=== PATIENT | male | born 1980 | race Caucasian/White ===

== ENCOUNTER 2017-09-05 09:06 | Emergency (ER) | payer OTHER ==
[2017-09-05 09:32] VITALS: RESP 18
--- NOTE | 2017-09-05 10:37 | ED ---
Lower Extremity Injury HPI - General Chief Complaint: Extremity Injury, Lower Stated Complaint: Ankle pain Time Seen by Provider: 09/05/17 10:11 Source: patient Mode of arrival: wheelchair Limitations: no limitations - History of Present Illness Initial Comments: This 37-year-old white male presents with a complaint of some left ankle pain. He states that he was playing basketball yesterday when he rolled/twisted his left ankle. He has had pain with ambulation since. He complains of some swelling on the lateral aspect. He states that he has sprained this ankle in the past but denies any previous fractures. He denies any other injuries. No other complaints or modifying factors. - Related Data Home Medications Medication Instructions Recorded Confirmed Acetaminophen Tab [Tylenol Tab] 1,000 mg PO Q6HR PRN 09/05/17 09/05/17 Previous Rx's Medication Instructions Recorded Ibuprofen [Motrin] 800 mg PO Q8H PRN #20 tab 09/05/17 Allergies Allergy/AdvReac Type Severity Reaction Status Date / Time No Known Allergies Allergy Verified 09/05/17 10:01 Review of Systems ROS Statement: Those systems with pertinent positive or pertinent negative responses have been documented in the HPI. ROS Other: All systems not noted in ROS Statement are negative. Past Medical History Past Medical History: No Reported History History of Any Multi-Drug Resistant Organisms: None Reported Past Surgical History: No Surgical Hx Reported Past Psychological History: No Psychological Hx Reported Smoking Status: Former smoker Past Alcohol Use History: Rare Past Drug Use History: Marijuana General Exam Limitations: no limitations General appearance: alert, in no apparent distress Extremities exam: Present: tenderness (There is tenderness present to the left ankle both laterally and medially. There is some mild swelling noted to the lateral aspect of the left ankle. There is some pain with any range of motion to the left ankle. There is no tenderness to the left proximal tibia/fibula. There is no foot tenderness or swelling.) Neurological exam: Present: alert, oriented X3 Skin exam: Present: intact. Absent: rash Course Vital Signs 09/05/17 09:31 Temperature 98.0 F Pulse Rate 77 Respiratory 18 Rate Blood Pressure 128/80 O2 Sat by Pulse 98 Oximetry Medical Decision Making - Medical Decision Making The patient was seen and examined. All diagnostics were reviewed. The patient had an x-ray of the left ankle which did not show any evidence of fracture. It is felt as though he likely does have a left ankle sprain. He is placed in a custom molded 4 inch Ortho-Glass splint by myself. Excellent post-splint neurovascular status is noted. He is counseled regarding ankle sprains in detail. He leaves in no apparent distress. Disposition Clinical Impression: Ankle sprain and strain Disposition: HOME SELF-CARE Condition: Good Instructions: Ankle Sprain (ED), Splint Care (ED), Crutch Instructions (ED) Prescriptions: Ibuprofen [Motrin] 800 mg PO Q8H PRN #20 tab PRN Reason: Pain Referrals: Lucio Anderson MD [Primary Care Provider] - 09/08/17 Time of Disposition: 11:20
--- NOTE | 2017-09-05 11:14 | XR ---
EXAMINATION TYPE: XR ankle complete LT DATE OF EXAM: 09/05/2017 COMPARISON: NONE HISTORY: 37-year-old male left ankle pain and swelling after basketball injury TECHNIQUE: 3 views FINDINGS: There is some bony spurring along the medial aspect of the medial malleolus. Ankle mortise is congrue nt with preservation of the distal tibiofibular overlap. Talar dome is intact. There is some circumfe rential soft tissue swelling noted. Subtalar joint is aligned. No acute fracture or dislocation. IMPRESSION: 1. Circumferential soft tissue swelling without acute osseous abnormality seen. 2. Some chronic bony changes at the medial malleolus can be seen in the setting of posterior tibial t endon dysfunction.
[2017-09-05 11:58] VITALS: BP 144/92; PULSE 69; TEMP 97.7
== END 2017-09-05 11:50 | disposition home or self-care (01) ==
LOC: EC 09:06
DX: S93.402A Sprain of unspecified ligament of left ankle, initial encounter (principal); S96.912A Strain of unspecified muscle and tendon at ankle and foot level, left foot, initial encounter; Z87.891 Personal history of nicotine dependence; X50.1XXA Overexertion from prolonged static or awkward postures, initial encounter; Y93.67 Activity, basketball
CPT/HCPCS: 29515; 99283

== ENCOUNTER 2018-10-02 13:44 | Emergency (ER) | payer OTHER ==
--- NOTE | 2018-10-02 14:03 | ED ---
General Adult HPI - General Chief complaint: Extremity Injury, Lower Stated complaint: knee pain Time Seen by Provider: 10/02/18 13:56 Source: patient, RN notes reviewed, old records reviewed Mode of arrival: ambulatory Limitations: no limitations - History of Present Illness Initial comments: 38-year-old male patient past medical history of hypertension presents to ED with right knee injury. Patient states that yesterday while playing basketball when he came down from a jump he felt pain on the anterior of his knee. Patient states that he feels that the "inside of his knee is tight". Patient is able to bear weight. Patient was not able to return to play. Patient not had any previous surgeries on her knee. Patient denies any other complaints. Systemic: Pt denies fatigue, myalgia, fever/chills, rash. Pt denies weakness, night sweats, weight loss. Neuro: Pt denies headache, visual disturbances, syncope or pre-syncope. HEENT: Pt denies ocular discharge or irritation, otalgia, rhinorrhea, pharyngitis or notable lymphadenopathy. Cardiopulmonary: Pt denies chest pain, SOB, heart palpitations, dyspnea on exertion. Abdominal/GI: Pt denies abdominal pain, n/v/d. : Pt denies dysuria, burning w/ urination, frequency/urgency. Denies new onset urinary or bowel incontinence. MSK: Pt denies myalgia, loss of strength or function in extremities. Neuro: Pt denies new onset weakness, paresthesias. - Related Data Home Medications Medication Instructions Recorded Confirmed Acetaminophen Tab [Tylenol Tab] 1,000 mg PO Q6HR PRN 09/05/17 09/05/17 Previous Rx's Medication Instructions Recorded Ibuprofen [Motrin] 800 mg PO Q8H PRN #20 tab 09/05/17 Allergies Allergy/AdvReac Type Severity Reaction Status Date / Time No Known Allergies Allergy Verified 10/02/18 13:48 Review of Systems ROS Statement: Those systems with pertinent positive or pertinent negative responses have been documented in the HPI. ROS Other: All systems not noted in ROS Statement are negative. Past Medical History Past Medical History: Hypertension History of Any Multi-Drug Resistant Organisms: None Reported Past Surgical History: No Surgical Hx Reported Past Psychological History: No Psychological Hx Reported Smoking Status: Former smoker Past Alcohol Use History: Rare Past Drug Use History: Marijuana General Exam - General Exam Comments Initial Comments: Constitutional: NAD, AOX3, Pt has pleasant affect. HEENT: NC/AT, trachea midline, neck supple, no lymphadenopathy. Posterior pharynx non erythematous, without exudates. External ears appear normal, without discharge. Mucous membranes moist. Eyes PERRLA, EOM intact. There is no scleral icterus. No pallor noted. Cardiopulmonary: RRR, no murmurs, rubs or gallops, no JVD noted. Lungs CTAB in anterior and posterior guallpa. No peripheral edema. Abdominal exam: Abdomen soft and non-distended. Abdomen non-tender to palpation in all 4 quadrants. Bowel sounds active in LLQ. No hepatosplenomegaly. No ecchymosis Neuro: CN II-XII grossly intact. No nuchal rigidity. MSK: Full active range of motion of the knee. No tenderness to palpation knee. No ecchymoses, no edema. No posterior calf tenderness bilaterally, homans sign negative bilaterally. Posterior tibialis and radial pulse +2 bilaterally. Sensation intact in upper and lower extremities. Full active ROM in upper and lower extremities, 5/5 stregnth. Limitations: no limitations Course Vital Signs 10/02/18 13:46 Temperature 97.9 F Pulse Rate 67 Respiratory 20 Rate Blood Pressure 160/104 O2 Sat by Pulse 99 Oximetry Medical Decision Making - Medical Decision Making 38-year-old male patient past medical history of hypertension presents to ED with right knee injury. Patient states that yesterday while playing basketball when he came down from a jump he felt pain on the anterior of his knee. Patient states that he feels that the "inside of his knee is tight". Patient is able to bear weight. Patient was not able to return to play. Patient not had any previous surgeries on her knee. Patient denies any other complaints. Patient vital signs stable, afebrile. Physical exam displayed: Full active range of motion of the knee. No tenderness to palpation knee. No ecchymoses, no edema. No posterior calf tenderness bilaterally, homans sign negative bilaterally. Posterior tibialis and radial pulse +2 bilaterally. Plain film of knee displayed no acute fracture dislocation. Small amount of fluid in the suprapatellar bursa. There is an intraosseous bone lesion of the proximal fibula, MRI recommended for further assessment. Provided bone density anterior to be likely related to previous amount as gets a lot of disease. Patient discharged with orthopedic follow-up. Patient return to ER if condition worsens in any way. Patient offered knee immobilizer, declined. Case discussed with Dr. Johnson. Disposition Clinical Impression: Knee sprain Disposition: HOME SELF-CARE Condition: Stable Instructions (If sedation given, give patient instructions): Knee Sprain (ED) Additional Instructions: Patient to adhere to previously discussed treatment plan and will take medication(s) as directed. Patient to follow up with PCP in 1-2 days. Patient to return to ED if symptoms do not improve. Follow up with primary care provider and orthopedic consult in 1-2 days. Return to ER if conditions worsen anyway. Is patient prescribed a controlled substance at d/c from ED?: No Referrals: Lucio Anderson MD [Primary Care Provider] - 1-2 days Curtis Ortiz MD [STAFF PHYSICIAN] - 1-2 days
--- NOTE | 2018-10-02 14:39 | XR ---
EXAMINATION TYPE: XR knee 4V RT DATE OF EXAM: 10/02/2018 COMPARISON: NONE HISTORY: Pain TECHNIQUE: Four views are submitted. FINDINGS: Joint spaces are preserved. Osseous structures are intact. No acute fracture seen. There is a intr aosseous lucent lesion involving the epiphysis of the proximal fibula measuring 4.1 cm. Aneurysmal jose ne cyst, bone cyst or fibrous dysplasia in the differential diagnosis. Other etiologies not excluded. MRI recommended. Bony density anterior to the tibia may be related to previous [place]-Schlatter dise ase or patellar tendon injury. IMPRESSION: 1. No acute fracture or dislocation. Small amount of fluid in the suprapatellar bursa. 2. There is an intraosseous bone lesion of the proximal fibula. MRI recommended for further assessmen t. 3. Rounded bony density anterior to the tibia likely related to previous remote [place]-Schlatter dise ase.
[2018-10-02 15:07] VITALS: BP 145/87; PULSE 62; RESP 18; TEMP 98
== END 2018-10-02 15:05 | disposition home or self-care (01) ==
LOC: EC 13:44
DX: S83.91XA Sprain of unspecified site of right knee, initial encounter (principal); Z87.891 Personal history of nicotine dependence; X58.XXXA Exposure to other specified factors, initial encounter; Y93.67 Activity, basketball
CPT/HCPCS: 99284

== ENCOUNTER → 2019-12-05 | Outpatient (CLI) | payer OTHER ==
--- NOTE | 2019-12-05 19:41 | CONS ---
CONSULTATION DATE OF SERVICE: 12/05/2019 This patient is a 39-year-old gentleman who has been evaluated in the sleep center for possible obstructive sleep apnea-hypopnea syndrome. 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 until 3 p.m. On weekends he sleeps from around 11 p.m. to 8 a.m. Usually no problems with falling asleep. No TV in bedroom. He usually sleeps on the side position. He snores and wakes up from sleep around 5 times with nocturia. During the time when he is not sleeping, he sometimes has sleepiness, although [place] Sleepiness Scale is 4, which is within normal range. The patient has a positive history of episodes of chest pain during the night also. No history of hypnagogic hallucinations, sleep paralysis or cataplexy. He does have a history of restless leg syndrome. PAST MEDICAL HISTORY: Positive for hypertension. According to the patient, he had a recent evaluation by a analytical manager, including an echocardiogram that was in normal range. He has history of asthma, acid reflux. PAST SURGICAL HISTORY: Right knee surgery. MEDICATIONS: Lisinopril, metoprolol. FAMILY HISTORY: Hypertension, heart problems, cancer, thyroid problems. SOCIAL HISTORY: Marijuana user for about 25 years, 2 times a day. REVIEW OF SYSTEMS: Multiple awakenings from sleep. PHYSICAL EXAMINATION: GENERAL: A pleasant 39-year-old gentleman without distress. VITAL SIGNS: BP 120/80, HR 80, RR 16, height 6 feet 1/2 inch, weight 274, body mass index 36.6, temperature 98.1, oxygen saturation at room air 97%. HEENT: PERRLA, EOMI. Evaluation of oropharynx showed tongue protrudes midline. Low position of soft palate. Mallampati III-IV. NECK: Supple. No JVD. Thyroid is not palpable. Wide neck measuring 17-1/2 inches in circumference. LUNGS: Clear to percussion and to auscultation. Good air exchange. No wheezing or rhonchi. HEART: S1, S2 regular. No murmurs, gallops or rubs. ABDOMEN: Soft. No tenderness. EXTREMITIES: No clubbing or cyanosis. 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 Cranial nerves 2 to 7 intact. There is no fasciculation or atrophy. noted. No focal deficits observed. IMPRESSION: 1. Snoring, multiple awakenings from sleep, low position of soft palate, wide neck; obstructive sleep apnea. 2. Obesity, body mass index 36.6. 3. Hypertension. 4. History of asthma. 5. Acid reflux. 6. Restless leg symptoms. 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 8. Status post right knee surgery. 9. Marijuana user for 25 years. PLAN: 1. Polysomnography for evaluation of patient's breathing during sleep. 2. CPAP/BiPAP titration if sleep study confirms obstructive sleep apnea-hypopnea syndrome. 3. Preferable position during sleep on the side. 4. No driving if patient feels any sleepiness. 5. I will see patient for follow up visit to explain results of testing and following plan. Thank you very much for referring this patient for consultation. Sincerely, Dre Oconnor MD, PhD, FAASM Diplomat of [place] [employer] [place] [employer] [facility] [place] MMODL / JUVENTINON: [id number] /
== END | disposition home or self-care (01) ==
LOC: SLEEP 16:43
PROVIDERS: ATTEND Internal Medicine
DX: G47.33 Obstructive sleep apnea (adult) (pediatric) (principal); E66.9 Obesity, unspecified; Z68.36 Body mass index [BMI] 36.0-36.9, adult; I10 Essential (primary) hypertension; G25.81 Restless legs syndrome; F12.90 Cannabis use, unspecified, uncomplicated; K21.9 Gastro-esophageal reflux disease without esophagitis; Z87.09 Personal history of other diseases of the respiratory system; Z96.651 Presence of right artificial knee joint; Z79.899 Other long term (current) drug therapy
CPT/HCPCS: 99211

== ENCOUNTER 2020-01-19 15:35 | Emergency (ER) | payer OTHER ==
[2020-01-19] MEDS ORDERED: diazePAM 5 MG TAB PO STA (15:59)
[2020-01-19] MEDS ORDERED: ACETAMINOPHEN TAB 325 MG TAB PO STA (15:59)
[2020-01-19] MEDS ORDERED: predniSONE 50 MG TAB PO STA (16:09)
--- NOTE | 2020-01-19 16:29 | XR ---
EXAMINATION TYPE: XR lumbar spine 2 or 3V DATE OF EXAM: 01/19/2020 COMPARISON: 09/21/2013 HISTORY: Right leg pain back pain TECHNIQUE: 3 views FINDINGS: Vertebra have normal alignment. There is narrowing of L4-5 and L5-S1 disc spaces with mild spurring. Posterior elements are intact. Sacroiliac joints appear intact. There is no compression fra cture. IMPRESSION: Degenerative disc changes in the lower lumbar spine show slight progression compared to o ld exam. No fracture seen.
[2020-01-19] MEDS ORDERED: MORPHINE SULFATE 4 MG/ML SYRINGE IM STA ×2 (16:53→17:34)
[2020-01-19 17:12] VITALS: RESP 18
[2020-01-19] MEDS ORDERED: KETOROLAC 15 MG/ML 1 ML VIAL IM STA (17:38)
--- NOTE | 2020-01-19 17:42 | ED ---
General Adult HPI - General Chief complaint: Back Pain/Injury Stated complaint: back pain Time Seen by Provider: 01/19/20 15:50 Source: patient, RN notes reviewed, old records reviewed Mode of arrival: ambulatory Limitations: no limitations - History of Present Illness Initial comments: 39-year-old male patient presents to ED for evaluation of right paralumbar back strain. Patient reports that he was playing basketball today felt fine. Reports that after he was done playing sat down flat tightness and pain in the right paralumbar region. Patient reports he is having some pain extending down the right posterior leg. He is denying any saddle anesthesia lower extremity weakness or loss of bowel or bladder control. Denies any falls or trauma. Den ies any other acute complaints. Systemic: Pt denies fatigue, fever/chills, rash. Pt denies weakness, night sweats, weight loss. Neuro: Pt denies headache, visual disturbances, syncope or pre-syncope. HEENT: Pt denies ocular discharge or irritation, otalgia, rhinorrhea, pharyngitis or notable lymphadenopathy. Cardiopulmonary: Pt denies chest pain, SOB, heart palpitations, dyspnea on exertion. Abdominal/GI: Pt denies abdominal pain, n/v/d. : Pt denies dysuria, burning w/ urination, frequency/urgency. Denies new onset urinary or bowel incontinence. MSK: Pt denies loss of strength or function in extremities. Neuro: Pt denies new onset weakness, paresthesias. - Related Data Home Medications Medication Instructions Recorded Confirmed Acetaminophen Tab [Tylenol Tab] 1,000 mg PO Q6HR PRN 09/05/17 09/05/17 Previous Rx's Medication Instructions Recorded Ibuprofen [Motrin] 800 mg PO Q8H PRN #20 tab 09/05/17 predniSONE 50 mg PO DAILY #4 tab 01/19/20 Allergies Allergy/AdvReac Type Severity Reaction Status Date / Time No Known Allergies Allergy Verified 01/19/20 15:43 Review of Systems ROS Statement: Those systems with pertinent positive or pertinent negative responses have been documented in the HPI. ROS Other: All systems not noted in ROS Statement are negative. Past Medical History Past Medical History: Hypertension History of Any Multi-Drug Resistant Organisms: None Reported Past Surgical History: No Surgical Hx Reported Past Psychological History: No Psychological Hx Reported Smoking Status: Never smoker Past Alcohol Use History: Rare Past Drug Use History: Marijuana General Exam - General Exam Comments Initial Comments: Constitutional: NAD, AOX3, Pt has pleasant affect. HEENT: NC/AT, trachea midline, neck supple, no lymphadenopathy. Posterior pharynx non erythematous, without exudates. External ears appear normal, without discharge. Mucous membranes moist. Eyes PERRLA, EOM intact. There is no scleral icterus. No pallor noted. Cardiopulmonary: RRR, no murmurs, rubs or gallops, no JVD noted. Lungs CTAB in anterior and posterior guallpa. No peripheral edema. Abdominal exam: Abdomen soft and non-distended. Abdomen non-tender to palpation in all 4 quadrants. No hepatosplenomegaly. No ecchymosis Neuro: CN II-XII grossly intact. No nuchal rigidity. No raccon eyes, no hunter sign, no hemotympanum. No cervical spinal tenderness. MSK: Mild tenderness to palpation right paralumbar region. Strength and sensation are intact. No skin changes/ No posterior calf tenderness bilaterally, homans sign negative bilaterally. Posterior tibialis and radial pulse +2 bilaterally. Sensation intact in upper and lower extremities. Full active ROM in upper and lower extremities, 5/5 stregnth. Limitations: no limitations Course Vital Signs 01/19/20 01/19/20 15:42 17:10 Temperature 97.9 F Pulse Rate 74 66 Respiratory 20 18 Rate Blood Pressure 155/82 128/93 O2 Sat by Pulse 99 98 Oximetry Medical Decision Making - Medical Decision Making 39-year-old male patient presents ED for chief complaint of paralumbar back strain with radiculopathy extending down to the right lower extremity. No red flag symptoms. Patient will signs are stable, afebrile. Physical exam displayed mild tenderness to the right paralumbar region strength and sensation are intact. I lumbar spine displayed mild increase in degenerative disc disease. Patient symptoms improve emergency department. We'll be discharged with first treatment outpatient orthopedic follow-up. Case discussed with Dr. Johnson. Disposition Clinical Impression: Lumbar back sprain Disposition: HOME SELF-CARE Condition: Stable Instructions (If sedation given, give patient instructions): Acute Low Back Pain (ED) Additional Instructions: Follow-up with PCP and orthopedic consult tomorrow. Take steroids as directed. Return to ED with any worsening symptoms. Take pain medication only as needed and wait until tomorrow before taking any of the Tylenol #3. . Prescriptions: predniSONE 50 mg PO DAILY #4 tab Is patient prescribed a controlled substance at d/c from ED?: No Referrals: Lucio Anderson MD [Primary Care Provider] - 1-2 days Austen Carter DO [Medical Doctor] - 1-2 days
[2020-01-19] MEDS ORDERED: ACET/COD 300 MG/30 MG STARTER PACK 6 TAB BTL PO STA (18:07)
[2020-01-19 18:30] VITALS: BP 110/72; PULSE 61; TEMP 98.8
== END 2020-01-19 18:28 | disposition home or self-care (01) ==
LOC: EC 15:35
DX: S33.5XXA Sprain of ligaments of lumbar spine, initial encounter (principal); M51.16 Intervertebral disc disorders with radiculopathy, lumbar region; X50.3XXA Overexertion from repetitive movements, initial encounter; Y93.67 Activity, basketball; Y92.89 Other specified places as the place of occurrence of the external cause
CPT/HCPCS: 72100; 96372; 99284

== ENCOUNTER 2023-04-15 13:21 | Emergency (ER) | payer OTHER ==
--- NOTE | 2023-04-15 14:04 | ED ---
General Adult HPI - General Chief complaint: Wound/Laceration Stated complaint: left toe injury Time Seen by Provider: 04/15/23 13:54 Source: patient, RN notes reviewed Mode of arrival: ambulatory Limitations: no limitations - History of Present Illness Initial comments: 43-year-old male presents to the emergency department with chief complaint of left first toe injury. He states that he was at the gym when he dropped a 5 pound weight on his toe. He states that he landed on his toenail and has continued to bleed. He is unsure of the patient's last tetanus vaccination. He is not taking anything for pain. - Related Data Home Medications Medication Instructions Recorded Confirmed Acetaminophen Tab [Tylenol Tab] 1,000 mg PO Q6HR PRN 09/05/17 09/05/17 Previous Rx's Medication Instructions Recorded Ibuprofen [Motrin] 800 mg PO Q8H PRN #20 tab 09/05/17 predniSONE 50 mg PO DAILY #4 tab 01/19/20 Allergies Allergy/AdvReac Type Severity Reaction Status Date / Time No Known Allergies Allergy Verified 04/15/23 13:52 Review of Systems ROS Statement: Those systems with pertinent positive or pertinent negative responses have been documented in the HPI. ROS Other: All systems not noted in ROS Statement are negative. Past Medical History Past Medical History: Hypertension History of Any Multi-Drug Resistant Organisms: None Reported Past Surgical History: No Surgical Hx Reported Past Psychological History: No Psychological Hx Reported Smoking Status: Never smoker Past Alcohol Use History: Rare Past Drug Use History: Marijuana General Exam Limitations: no limitations General appearance: alert, in no apparent distress Head exam: Present: atraumatic, normocephalic, normal inspection Eye exam: Present: normal appearance Extremities exam: Present: full ROM, tenderness, normal capillary refill, other (DP and PT pulses 2+, the subungual hematoma of the left first toenail) Back exam: Present: normal inspection Neurological exam: Present: alert, oriented X3 Psychiatric exam: Present: normal affect, normal mood Skin exam: Present: warm, dry, normal color Course Vital Signs 04/15/23 13:49 Temperature 98.2 F Pulse Rate 68 Respiratory 18 Rate Blood Pressure 138/91 O2 Sat by Pulse 99 Oximetry Medical Decision Making - Medical Decision Making Was pt. sent in by a medical professional or institution (Dr. PA, [employer] HELPER, urgent care, hospital, or long term...) When possible be specific @ -No Did you speak to anyone other than the patient for history (EMS, parent, family, police, friend...)? What history was obtained from this source @ -No Did you review nursing and triage notes (agree or disagree)? Why? @ -I reviewed and agree with nursing and triage notes Were old charts reviewed (outside hosp., previous admission, EMS record, old EKG, old radiological studies, urgent care reports/EKG's, long term records)? Report findings @ -No old charts were reviewed Differential Diagnosis (chest pain, altered mental status, abdominal pain women, abdominal pain men, vaginal bleeding, weakness, fever, dyspnea, syncope, headache, dizziness, GI bleed, back pain, seizure, CVA, palpatations, mental health, musculoskeletal)? @ -Differential Musculoskeletal Muscular strain, contusion, ligament sprain, fracture, arthritis, septic arthritis, bursitis, cellulitis, muscle spasm, nerve compression, DVT, arterial occlusion, herpes zoster, electrolyte abnormality, tumor.... This is not meant to be in all inclusive list EKG interpreted by me (3pts min.). @ -None X-rays interpreted by me (1pt min.). @ -XR toes show no evidence of acute fracture CT interpreted by me (1pt min.). @ -None done U/S interpreted by me (1pt. min.). @ -None done What testing was considered but not performed or refused? (CT, X-rays, U/S, labs)? Why? @ -None What meds were considered but not given or refused? Why? @ -None Did you discuss the management of the patient with other professionals (professionals i.e. , PA, [employer] HELPER, lab, RT, psych nurse, social services assistant, systems eng, teacher, national insurance officer, case mgr)? Give summary @ -No Was smoking cessation discussed for >3mins.? @ -No Was critical care preformed (if so, how long)? @ -No Were there social determinants of health that impacted care today? How? (Homelessness, low income, unemployed, alcoholism, drug addiction, transportation, low edu. Level, literacy, decrease access to med. care, senior care, rehab)? @ -No Was there de-escalation of care discussed even if they declined (Discuss DNR or withdrawal of care, Hospice)? DNR status @ -No What co-morbidities impacted this encounter? (DM, HTN, Smoking, COPD, CAD, Cancer, CVA, ARF, Chemo, Hep., AIDS, mental health diagnosis, sleep apnea, morbid obesity)? @ -None Was patient admitted / discharged? Hospital course, mention meds given and route, prescriptions, significant lab abnormalities, going to OR and other pertinent info. @ -discharged. Patient presented to the emergency department for chief complaint of left toe pain after dropping a 5 pound weight on it at the gym. X- ray shows no acute fracture. Subungual hematoma present. Trephination performed with 18-gauge needle. bacitracin applied. Patient discharged home in stable condition. Case discussed with Dr. Johnson Undiagnosed new problem with uncertain prognosis? @ -No Drug Therapy requiring intensive monitoring for toxicity (Heparin, Nitro, Insulin, Cardizem)? @ -No Were any procedures done? @ -Trephination Diagnosis/symptom? @ -Subungual hematoma Acute, or Chronic, or Acute on Chronic? @ -Acute Uncomplicated (without systemic symptoms) or Complicated (systemic symptoms)? @ -uncomplicated Side effects of treatment? @ -No Exacerbation, Progression, or Severe Exacerbation? @ -No Poses a threat to life or bodily function? How? (Chest pain, [place], [place], pneumonia, PE, COPD, DKA, ARF, appy, cholecystitis, CVA, Diverticulitis, Homicidal, Suicidal, threat to staff... and all critical care pts) @ -No Disposition Clinical Impression: Subungual hematoma, Toe contusion Disposition: HOME SELF-CARE Condition: Stable Instructions (If sedation given, give patient instructions): Subungual Hematoma (ED) Additional Instructions: Please follow up with your primary care provider. Return to the emergency department for new or worsening symptoms. Is patient prescribed a controlled substance at d/c from ED?: No Referrals: Lucio Anderson MD [Primary Care Provider] - 1-2 days
[2023-04-15 14:09] VITALS: BP 138/91; PULSE 68; RESP 18; TEMP 98.2
[2023-04-15] MEDS ORDERED: DIPH,PERTUS(ACELL)TETVAC-LF 0.5 ML VIAL IM ONE (14:33)
--- NOTE | 2023-04-15 14:37 | XR ---
Left toes HISTORY: Dropped weight on foot. COMPARISON: None. TECHNIQUE: 3 views of the left first second and third toes were obtained. FINDINGS: There is no fracture, dislocation, intraosseous, intra-articular or soft tissue abnormality. IMPRESSION: No evidence of acute trauma.
[2023-04-15] MEDS ORDERED: BACITRACIN OINT 1 EACH PACKET TOPICAL ONE (14:56)
== END 2023-04-15 15:15 | disposition home or self-care (01) ==
LOC: EC 13:21
DX: S90.112A Contusion of left great toe without damage to nail, initial encounter (principal); I10 Essential (primary) hypertension; F12.90 Cannabis use, unspecified, uncomplicated; Z23 Encounter for immunization; X50.0XXA Overexertion from strenuous movement or load, initial encounter
CPT/HCPCS: 11740; 90471; 90715; 99283